=== PATIENT | male | born 1940 | race Caucasian/White ===

== ENCOUNTER 2023-05-06 09:20 | Emergency (ER) | payer MEDICARE ==
[~2023-05-06] VITALS: Ht 162.6 cm; Wt 54.4 kg
[2023-05-06 09:20] VITALS: BP_SYST 118; PULSE 76; RESP 19; TEMP 97.3; O2SAT 96
[2023-05-06] MEDS ORDERED: SEVE800T8 PO (09:47)
[2023-05-06] MEDS ORDERED: AMIO200T68 PO (09:47)
[2023-05-06] MEDS ORDERED: PRO40 PO (09:47)
[2023-05-06] MEDS ORDERED: NEPH PO (09:47)
[2023-05-06] MEDS ORDERED: MIDO10TA PO (09:47)
[2023-05-06] MEDS ORDERED: ALBMDI INH (09:47)
[2023-05-06] MEDS ORDERED: NUT.237L67 PO (09:47)
[2023-05-06] MEDS ORDERED: NITSL SL (09:47)
[2023-05-06] MEDS ORDERED: ASPI-1393 PO (09:47)
[2023-05-06] MEDS ORDERED: AMIN30LI2 PO (09:47)
[2023-05-06] MEDS ORDERED: TIOT4MIS2 IH (09:47)
[2023-05-06] MEDS ORDERED: ACET-73 PO (09:47)
[2023-05-06 10:21] LABS: ANION GAP 12 (5-15); CALCIUM 9.6 mg/dL (8.4-11.0); CARBON DIOXIDE 29 mmol/L (23-29); CHLORIDE 103 mmol/L (98-107); CREATININE 3.63 mg/dL (0.55-1.30); GLUCOSE 128 mg/dL (74-106); INR 1.2 (0.80-1.20); POTASSIUM 3.9 mmol/L (3.5-5.1); SODIUM SERUM 144 mmol/L (136-145); UREA NITROGEN, BLOOD 41 mg/dL (8-21)
[2023-05-06 10:27] LABS: BASOPHILS # (AUTO) 0.1 K/uL (0.0-0.2); BASOPHILS % (AUTO) 1.3 % (0.0-2.0); EOSINOPHILS # (AUTO) 0.1 K/uL (0.0-0.4); EOSINOPHILS % (AUTO) 1.8 % (0.0-4.0); HEMATOCRIT 42.9 % (36-54); HEMOGLOBIN 13.8 g/dL (14.0-18.0); LYMPHOCYTES # (AUTO) 0.6 K/uL (1.0-5.5); LYMPHOCYTES % (AUTO) 7.8 % (20.5-51.5); MEAN CORPUSCULAR HEMOGLOBIN 32 pg (27-31); MEAN CORPUSCULAR HGB CONC 32 % (32-36); MEAN CORPUSCULAR VOLUME 100 fL (79.0-98.0); MONOCYTES # (AUTO) 0.5 K/uL (0.0-1.0); MONOCYTES % (AUTO) 7.3 % (1.7-9.3); NEUTROPHILS # (AUTO) 5.8 K/uL (1.8-7.7); NEUTROPHILS % (AUTO) 81.8 % (40.0-70.0); PLATELET COUNT (AUTO) 209 K/uL (130-430); RED BLOOD CELL COUNT(AUTO) 4.28 MIL/uL (4.2-6.2); RED CELL DISTRIBUTION WIDTH 19.1 % (9.0-15.0); WHITE BLOOD COUNT (AUTO) 7.1 K/uL (4.8-10.8)
[2023-05-06 10:44] LABS: ALCOHOL, BLOOD < 3 mg/dL (<10)
[2023-05-06 12:30] VITALS: BP_SYST 128; PULSE 71; RESP 19; TEMP 97.3; O2SAT 98
== END 2023-05-06 16:15 | disposition short-term general hospital (02) ==
LOC: SED 09:20
DX: R53.1 Weakness (principal); R41.82 Altered mental status, unspecified; R79.89 Other specified abnormal findings of blood chemistry; Z88.0 Allergy status to penicillin; Z79.899 Other long term (current) drug therapy
CPT/HCPCS: 99285; 93970; 70450; 71045; 80048; 82140; 85025; 85610; 85730; 84484; 36415; 93005; 76376; G0482